=== PATIENT | male | born 1985 | race Caucasian/White ===

== ENCOUNTER 2021-01-08 15:00 | Inpatient (IN) | payer OTHER ==
[~2021-01-08] VITALS: Ht 177.8 cm; Wt 101.6 kg
[~2021-01-08 15:00] MED LIST: FLEXERIL 10 MG10 MG PO; MEDROL4 MG PO; PERCOCET 5/325 T1 EA PO
[2021-01-08 16:25] LABS: HEMOGLOBIN 15.7 gm/dl (14.0-17.5); RED BLOOD COUNT 5.13 M/UL (4.20-5.50); WHITE BLOOD COUNT 14.9 K/UL (4.5-11.0)
[2021-01-08 16:57] LABS: BUN/CREATININE RATIO 17 (0-10)
[2021-01-09] MEDS ORDERED: BUPRENORPHIN-N1 EACH SL (07:36)
[2021-01-09 11:13] LABS: BUN/CREATININE RATIO 18 (0-10)
[2021-01-09 11:37] LABS: RED BLOOD COUNT 4.11 M/UL (4.20-5.50)
[2021-01-10 09:14] LABS: HBSAG SCREEN Negative (Negative); HEP A AB, IGM Negative (Negative); HEP B CORE AB, IGM Positive (Negative); HEP C VIRUS AB <0.1 (0.0-0.9)
[2021-01-10] MEDS ORDERED: AUGMENTIN 875-1 EACH PO (14:03)
== END 2021-01-10 17:36 | disposition home or self-care (01) | DRG 872 ==
LOC: ER1 15:00 → CDU 19:13 → MED SURG 4 01-09 21:44
PROVIDERS: Family Medicine; ADMIT Internal Medicine
DX: A41.9 Sepsis, unspecified organism (principal); K81.0 Acute cholecystitis; Z20.822 Contact with and (suspected) exposure to COVID-19; R65.20 Severe sepsis without septic shock; R00.0 Tachycardia, unspecified; E87.6 Hypokalemia; F19.11 Other psychoactive substance abuse, in remission; M10.9 Gout, unspecified; F17.210 Nicotine dependence, cigarettes, uncomplicated; Z82.49 Family history of ischemic heart disease and other diseases of the circulatory system
CPT/HCPCS: 0240U; 36415; 71045; 74181; 80053; 80074; 80307; 81001; 82140; 83605; 83690; 84550; 85025; 85610; 87040; 93005; 96365; 96368; 96372; 96375; 96376; 99285; C9113; J1650; J2405; J2543; J3480; Q9967

== ENCOUNTER 2021-01-19 17:15 | Emergency (ER) | payer OTHER ==
[~2021-01-19 17:15] MED LIST changes: +AUGMENTIN 875-1 EACH PO; +BUPRENORPHIN-N1 EACH SL
== END 2021-01-19 18:27 | disposition left against medical advice (07) ==
LOC: ER1 17:15
DX: Z53.21 Procedure and treatment not carried out due to patient leaving prior to being seen by health care provider (principal)

== ENCOUNTER 2021-07-04 11:32 | Emergency (ER) | payer OTHER ==
[2021-07-04 13:10] LABS: HEMOGLOBIN 14.1 gm/dl (14.0-17.5); RED BLOOD COUNT 4.87 M/UL (4.20-5.50); WHITE BLOOD COUNT 4.5 K/UL (4.5-11.0)
[2021-07-04 13:25] LABS: BUN/CREATININE RATIO 9 (0-10)
[2021-07-04] MEDS ORDERED: DECADRON6 MG PO (14:31)
== END 2021-07-04 11:48 | disposition home or self-care (01) ==
LOC: ER1 11:32
PROVIDERS: Physician Assistant Medical
DX: U07.1 COVID-19 (principal); K80.20 Calculus of gallbladder without cholecystitis without obstruction
CPT/HCPCS: 71045; 76705; 80053; 81001; 85025; 96374; 96375; 99285; J2270; J2405; J7030; U0002

== ENCOUNTER 2021-07-06 06:22 | Emergency (ER) | payer OTHER ==
[~2021-07-06 06:22] MED LIST changes: +DECADRON6 MG PO
[2021-07-06 07:06] LABS: HEMOGLOBIN 13.8 gm/dl (14.0-17.5); RED BLOOD COUNT 4.97 M/UL (4.20-5.50)
[2021-07-06 07:13] LABS: WHITE BLOOD COUNT 5.7 K/UL (4.5-11.0)
[2021-07-06 07:23] LABS: BUN/CREATININE RATIO 8 (0-10)
== END 2021-07-06 09:19 | disposition home or self-care (01) ==
LOC: ER1 06:22
PROVIDERS: Emergency Medicine
DX: U07.1 COVID-19 (principal); K80.20 Calculus of gallbladder without cholecystitis without obstruction
CPT/HCPCS: 80053; 85025; 93005; 96374; 96375; 99284; J1885; J2405

== ENCOUNTER 2021-09-05 10:51 | Emergency (ER) | payer OTHER ==
[2021-09-05 11:44] LABS: RED BLOOD COUNT 5.32 M/UL (4.20-5.50); WHITE BLOOD COUNT 6.2 K/UL (4.5-11.0)
[2021-09-05 12:37] LABS: BUN/CREATININE RATIO 9 (0-10)
[2021-09-05] MEDS ORDERED: ZOFRAN ODT 4 MG4 MG SL (14:47)
== END 2021-09-05 14:58 | disposition home or self-care (01) ==
LOC: ER1 10:51
PROVIDERS: Emergency Medicine
DX: K80.20 Calculus of gallbladder without cholecystitis without obstruction (principal)
CPT/HCPCS: 71045; 76705; 80053; 81001; 83605; 83690; 85025; 86140; 96374; 96375; 99284; J0780; J1885; J7030

== ENCOUNTER 2021-09-13 07:32 | Day surgery (SDC) | payer OTHER ==
[~2021-09-13] VITALS: Ht 177.8 cm; Wt 102.1 kg
[~2021-09-13 07:32] MED LIST changes: +ZOFRAN ODT 4 MG4 MG SL
[2021-09-14 07:04] LABS: HEMOGLOBIN 13.6 gm/dl (14.0-17.5); RED BLOOD COUNT 4.82 M/UL (4.20-5.50); WHITE BLOOD COUNT 16.3 K/UL (4.5-11.0)
[2021-09-14 07:31] LABS: BUN/CREATININE RATIO 16 (0-10)
--- NOTE | 2021-09-14 12:57 | NUR ---
Patient complaining of pain with movement, requesting additional pain medication. Contacted Dr. Ascencio and per Dr. Ascencio he will come to evaluate patient shortly and plans are to discharge patient home. Patient made aware.
[2021-09-15] MEDS ORDERED: ZOFRAN 4 MG TAB4 MG PO (09:46)
[2021-09-15] MEDS ORDERED: IBUPROFEN800 MG PO (09:46)
== END 2021-09-15 12:38 | disposition home or self-care (01) ==
LOC: OR 07:32 → MED SURG 4 17:03 → OR 09-15 12:38
PROVIDERS: Surgery
PROC: 0FT44ZZ Resection of Gallbladder, Percutaneous Endoscopic Approach (ICD-10-PCS; principal; 2021-09-13 09:30)
DX: K80.00 Calculus of gallbladder with acute cholecystitis without obstruction (principal); K82.8 Other specified diseases of gallbladder; K66.0 Peritoneal adhesions (postprocedural) (postinfection); K75.9 Inflammatory liver disease, unspecified; F17.200 Nicotine dependence, unspecified, uncomplicated; J45.909 Unspecified asthma, uncomplicated; Z20.822 Contact with and (suspected) exposure to COVID-19; Z79.899 Other long term (current) drug therapy
CPT/HCPCS: 80053; 85027; J0690; J1100; J1885; J2001; J2270; J2405; J2704; J2710; J3010; J7030; J7120; Q9967

== ENCOUNTER 2021-09-20 11:21 | Emergency (ER) | payer OTHER ==
[~2021-09-20 11:21] MED LIST changes: +IBUPROFEN800 MG PO; +ZOFRAN 4 MG TAB4 MG PO
[2021-09-20 14:58] LABS: HEMOGLOBIN 13.9 gm/dl (14.0-17.5); RED BLOOD COUNT 4.66 M/UL (4.20-5.50)
[2021-09-20 15:35] LABS: BUN/CREATININE RATIO 11 (0-10)
== END 2021-09-20 17:00 | disposition home or self-care (01) ==
LOC: ER1 11:21
PROVIDERS: Emergency Medicine
DX: T85.698A Other mechanical complication of other specified internal prosthetic devices, implants and grafts, initial encounter (principal); Z90.49 Acquired absence of other specified parts of digestive tract; X58.XXXA Exposure to other specified factors, initial encounter
CPT/HCPCS: 80053; 85025; 99283

== ENCOUNTER 2021-10-09 15:42 | Inpatient (IN) | payer OTHER ==
[~2021-10-09] VITALS: Ht 177.8 cm; Wt 93.9 kg
[2021-10-09 16:58] LABS: HEMOGLOBIN 14.7 gm/dl (14.0-17.5); RED BLOOD COUNT 5.01 M/UL (4.20-5.50); WHITE BLOOD COUNT 9.3 K/UL (4.5-11.0)
[2021-10-09 17:19] LABS: BUN/CREATININE RATIO 9 (0-10)
[2021-10-11 06:15] LABS: RED BLOOD COUNT 3.92 M/UL (4.20-5.50); WHITE BLOOD COUNT 4.2 K/UL (4.5-11.0)
[2021-10-11 06:16] LABS: HEMOGLOBIN 11.2 gm/dl (14.0-17.5)
[2021-10-11 06:32] LABS: BUN/CREATININE RATIO 5 (0-10)
[2021-10-11] MEDS ORDERED: BACTRIM DS TAB1 EACH PO (11:26)
[2021-10-11] MEDS ORDERED: AUGMENTIN 875-1 EACH PO (11:26)
== END 2021-10-11 14:59 | disposition home or self-care (01) | DRG 863 ==
LOC: ER1 15:42 → PROG CARE 10-10 03:53 → CDU 10-10 03:53 → PROG CARE 10-10 04:29 → M/S 10-10 13:50
PROVIDERS: Physician Assistant; ADMIT Internal Medicine
DX: T81.41XA Infection following a procedure, superficial incisional surgical site, initial encounter (principal); D61.818 Other pancytopenia; L03.311 Cellulitis of abdominal wall; Z20.822 Contact with and (suspected) exposure to COVID-19; Y83.8 Other surgical procedures as the cause of abnormal reaction of the patient, or of later complication, without mention of misadventure at the time of the procedure; F12.10 Cannabis abuse, uncomplicated; M10.9 Gout, unspecified; E80.6 Other disorders of bilirubin metabolism; E66.9 Obesity, unspecified; Z82.49 Family history of ischemic heart disease and other diseases of the circulatory system; Z68.29 Body mass index [BMI] 29.0-29.9, adult; Z90.49 Acquired absence of other specified parts of digestive tract
CPT/HCPCS: 36415; 71045; 80048; 80053; 80307; 81001; 83605; 83690; 85025; 85379; 87040; 87086; 93005; 96374; 96375; 99285; J0690; J1650; J2060; J2543; J3370; J7030; J7050; Q9967; U0002

== ENCOUNTER 2022-02-19 18:56 | Emergency (ER) | payer OTHER ==
[~2022-02-19 18:56] MED LIST changes: +BACTRIM DS TAB1 EACH PO
[2022-02-19 22:05] LABS: HEMOGLOBIN 13.2 gm/dl (14.0-17.5); RED BLOOD COUNT 4.65 M/UL (4.20-5.50); WHITE BLOOD COUNT 7.8 K/UL (4.5-11.0)
[2022-02-19 22:09] LABS: BUN/CREATININE RATIO 10 (0-10)
[2022-02-20] MEDS ORDERED: PHENERGAN 25 MG25 M1 PO (02:04)
[2022-02-20] MEDS ORDERED: TORADOL 10 MG T10 MG PO (02:04)
[2022-02-20] MEDS ORDERED: AMOX TR-K CLV1 EAC4 PO (02:04)
[2022-02-20] MEDS ORDERED: ONDANSETRON ODT4 MG SL (02:04)
== END 2022-02-20 02:25 | disposition home or self-care (01) ==
LOC: ER1 18:56
PROVIDERS: Physician Assistant Medical
DX: K65.1 Peritoneal abscess (principal); R79.1 Abnormal coagulation profile; F17.220 Nicotine dependence, chewing tobacco, uncomplicated
CPT/HCPCS: 71045; 80053; 81001; 83690; 85025; 85379; 96374; 99284; J1885; Q9967

== ENCOUNTER 2022-02-28 16:24 | Emergency (ER) | payer OTHER ==
[~2022-02-28 16:24] MED LIST changes: +AMOX TR-K CLV1 EAC4 PO; +ONDANSETRON ODT4 MG SL; +PHENERGAN 25 MG25 M1 PO; +TORADOL 10 MG T10 MG PO
[2022-02-28] MEDS ORDERED: BACTRIM DS TAB1 EACH PO (17:34)
== END 2022-02-28 18:06 | disposition home or self-care (01) ==
LOC: ER1 16:24
DX: L03.311 Cellulitis of abdominal wall (principal)
CPT/HCPCS: 99283